=== PATIENT | female | born 1965 | race African-American/Black ===

== ENCOUNTER → 2019-02-25 | Outpatient (CLI) | payer OTHER ==
[2019-02-25 12:39] LABS: BARBITURATES NEG (NEG); BENZODIAZEPINES NEG (NEG); CANNABINOIDS NEG (NEG); COCAINE NEG (NEG); METHADONE NEG (NEG); OPIATES NEG (NEG); PHENCYCLIDINE NEG (NEG)
[2019-02-25 12:42] LABS: AMPHETAMINE/METHAMPHETAMINE NEG (NEG)
[2019-02-25 12:43] LABS: BASO % 1 % (0-3); EOS # 0.3 x10^3/uL (0.0-0.7); EOS % 4 % (0-3); HEMATOCRIT 41.4 % (36.0-47.0); HEMOGLOBIN 13.4 g/dL (12.0-15.5); LYMPH # 2.9 x10^3/uL (1.0-4.8); LYMPH % 42 % (24-48); MEAN CORPUSCULAR HEMOGLOBIN 26 pg (25-35); MEAN CORPUSCULAR HGB CONC 32 g/dL (31-37); MEAN CORPUSCULAR VOLUME 80 fL (79-100); MONO # 0.5 x10^3/uL (0.0-1.1); MONO % 7 % (0-9); NEUT # 3.2 x10^3/uL (1.8-7.7); NEUT % 46 % (31-73); PLATELET COUNT 316 x10^3/uL (140-400); RED BLOOD COUNT 5.17 x10^6/uL (3.50-5.40); RED CELL DISTRIBUTION WIDTH 15.1 % (11.5-14.5)
[2019-02-25 12:49] LABS: ALBUMIN 4.1 g/dL (3.4-5.0); ALBUMIN/GLOBULIN RATIO 1.1 (1.0-1.7); CALCIUM 10.7 mg/dL (8.5-10.1); CREATININE 0.8 mg/dL (0.6-1.0); GFR 74.5; POTASSIUM 3.7 mmol/L (3.5-5.1); TOTAL BILIRUBIN 0.2 mg/dL (0.2-1.0); TOTAL PROTEIN 7.8 g/dL (6.4-8.2)
== END | disposition home or self-care (01) ==
LOC: LAB 11:50
PROVIDERS: ATTEND Psychiatry & Neurology Neurology
DX: E11.40 Type 2 diabetes mellitus with diabetic neuropathy, unspecified (principal); E03.9 Hypothyroidism, unspecified; R56.9 Unspecified convulsions
CPT/HCPCS: 36415; 80053; 80307; 82607; 84443; 85025

== ENCOUNTER → 2019-03-11 | Outpatient (CLI) | payer OTHER ==
--- NOTE | 2019-03-15 19:48 | EEG ---
DATE OF SERVICE: 03/11/2019 EEG NUMBER: [id number]. OBJECTIVE: This is a 53-year-old female patient with history of seizure or seizure-like episodes. EEG was requested to evaluate seizure activity. METHODS: Twenty electrodes were applied according to the international 10-20 electrode placement system. EKG monitoring, hyperventilation, intermittent photic stimulation, monopolar and bipolar montages are routinely utilized. The record was obtained on a digital system with video monitoring. FINDINGS: 1. Background: The patient was recorded in the awake, drowsy, and sleep states. The overall background amplitude is 5-15 microvolts. A posterior dominant rhythm of 8-9 Hz is observed. 2. Abnormalities: No specific epileptiform discharge or electrographic seizure is seen. No diffuse slowing. 3. Activation: Hyperventilation was performed with good efforts and normal response. Intermittent photic stimulation was performed with photic driving. No specific epileptiform discharge or electrographic seizure induced by hyperventilation or intermittent photic stimulation. IMPRESSION: This EEG is a borderline study for the awake, drowsy, and sleep states. No focal, lateralizing, or specific epileptiform discharge or electrographic seizure is seen. RADAMES COLE MD DR: TED/jerad JOB#: [id number] / [id number] EMILY
== END | disposition home or self-care (01) ==
LOC: RT 08:46
PROVIDERS: ATTEND Psychiatry & Neurology Neurology
DX: R56.9 Unspecified convulsions (principal)
CPT/HCPCS: 95816

== ENCOUNTER → 2019-05-03 | Outpatient (CLI) | payer OTHER ==
--- NOTE | 2019-05-18 19:52 | EEG ---
DATE OF SERVICE: 05/03/2019 EEG#: [id number]. OBJECTIVE: This is a 53-year-old -[place] female patient with history of seizure or seizure-like episodes. EEG was requested to evaluate seizure activity. This is a long-term video EEG monitoring. METHODS: Twenty electrodes were applied according to the international 10-20 electrode placement system. EKG monitoring, hyperventilation, intermittent photic stimulation, monopolar and bipolar montages are routinely utilized. The record was obtained on a digital system with video monitoring. FINDINGS: 1. Background: The patient was recorded in the awake, drowsy, and sleep states. The overall background amplitude is 10-20 microvolts. A posterior dominant rhythm of 8 Hz is observed. 2. Abnormalities: No specific epileptiform discharge or electrographic seizure is seen. No focal or diffuse slowing. 3. Activation: Hyperventilation was performed with good efforts and normal response. Intermittent photic stimulation was performed with photic driving. IMPRESSION: This is a long-term video EEG study with the total video monitoring and EEG recording time of 24 hours from 05/03/2019 to 05/04/2019. This long-term video EEG study is within the normal limits of the study for the awake, drowsy, and sleep states. No focal, lateralizing, specific epileptiform discharge or electrographic seizure is seen. The patient had a seizure-like episode at 12:21 pm as sudden jerking movements in her arms and legs. Her both arms extended with flapping up and down movements against the bed, and her both lower extremities were in extension position with similar movements with body up-down movements lasting for about 1.5 minutes. No changes of vitals. This episode may suggest non- epileptic seizure. RADAMES COLE MD DR: TED/jerad JOB#: [id number] / [id number] EMILY
== END | disposition home or self-care (01) ==
LOC: SLPLAB 06:17
PROVIDERS: ATTEND Psychiatry & Neurology Neurology
DX: R56.9 Unspecified convulsions (principal)
CPT/HCPCS: 95716; 95951

== ENCOUNTER → 2019-10-27 | Outpatient (CLI) | payer OTHER ==
--- NOTE | 2019-11-01 16:19 | SLEEP ---
DATE OF STUDY: 10/27/2019 OBJECTIVE: The patient is a 54-year-old female with excessive somnolence. Height 64 inches, weight 205 pounds, body mass index 35.2. [place] sleep score 21. The respiratory monitoring shows a total of 139 events for a respiratory disturbance index of 15.6 events per hour of sleep. Also noted were respiratory event related arousals and flow limitations. The minimum oxygen saturation is 77%. There was an episode of tachycardia 255 beats per minute, thought to be artifactual. IMPRESSION: Abnormal home polysomnogram demonstrating moderate-severe apnea and hypopnea. RECOMMENDATIONS: The patient should return to the lab for a CPAP titration study. Thank you for letting us help with the patient's care. MAYI ELI MD DR: SID/jerad JOB#: [id number] / [id number] VERONIKA Hazel GALEN MD
== END | disposition home or self-care (01) ==
LOC: RT 08:17
PROVIDERS: ATTEND Nurse Practitioner Family
DX: G47.33 Obstructive sleep apnea (adult) (pediatric) (principal); R40.0 Somnolence
CPT/HCPCS: G0399

== ENCOUNTER → 2020-04-11 | Outpatient (CLI) | payer OTHER ==
[2020-02-16 11:00] VITALS: BP 111/55
[~2020-04-11] MED LIST: PANT40TA77 PO
--- NOTE | 2020-04-11 11:10 | CARD ---
MR#: [id number] Date of Study: 04/11/2020 Ordering Physician: KELLEY AMBROSE, Referring Physician: KELLEY AMBROSE, Tech: Kenya Bernievenu, [facility] APPROVED REPORT EXAM: Two-dimensional and M-mode echocardiogram with Doppler and color Doppler. Other Information Quality : AverageHR: 77bpm Technically limited study due to Asthma INDICATION Dyspnea RISK FACTORS Hypertension Hyperlipidemia Diabetes 2D DIMENSIONS RVDd2.8 (2.9-3.5cm)Left Atrium(2D)3.5 (1.6-4.0cm) IVSd1.2 (0.7-1.1cm)Aortic Root(2D)3.0 (2.0-3.7cm) LVDd4.8 (3.9-5.9cm)LVOT Diameter2.1 (1.8-2.4cm) PWd1.3 (0.7-1.1cm)LVDs2.9 (2.5-4.0cm) FS (%) 38.9 %SV73.9 ml LVEF(%)64.3 (>50%) Aortic Valve AoV Peak Ronald.138.4cm/sAoV VTI26.5cm AO Peak GR.7.7mmHgLVOT Peak Ronald.118.3cm/s LVOT VTI 21.32cmAO Mean GR.5mmHg JAIME (VMAX)2.05ym8ZEG (VTI)2.84cm2 Mitral Valve MV E Mtovtywq63.3cm/sMV DECEL [id number] MV A Kwcsfxzb81.6cm/sMV XAK39fv E/A Ratio0.7MVA (PHT)2.33cm2 TDI E/Lateral E'6.4E/Medial E'6.1 Pulmonary Valve PV Peak Uvtfabzl891.4cm/sPV Peak Grad.5mmHg Pulmonary Vein S1 Vpqsidox22.7cm/sD2 Cwgdpufv18.9cm/s PVa [id number] LEFT VENTRICLE The left ventricle is normal size. There is mild to moderate concentric left ventricular hypertrophy. The left ventricular systolic function is normal and the ejection fraction is within normal range. T he Ejection Fraction is 55-60%. There is normal LV segmental wall motion. Transmitral Doppler flow pa ttern is Grade I-abnormal relaxation pattern. RIGHT VENTRICLE The right ventricle is normal size. There is normal right ventricular wall thickness. The right ventr icular systolic function is normal. ATRIA The left atrium size is normal. The right atrium size is normal. The interatrial septum is intact wit h no evidence for an atrial septal defect or patent foramen ovale as noted on 2-D or Doppler imaging. AORTIC VALVE The aortic valve is normal in structure and function. Doppler and Color Flow revealed no significant aortic regurgitation. There is no significant aortic valvular stenosis. Calculated aortic valve area is 2.46 cm2 with maximum pressure gradient of 9 mmHg and mean pressure gradient of 6 mmHg. MITRAL VALVE The mitral valve is normal in structure and function. There is no evidence of mitral valve prolapse. There is no mitral valve stenosis. Doppler and Color-flow revealed trace mitral regurgitation. TRICUSPID VALVE The tricuspid valve is normal in structure and function. Doppler and Color Flow revealed no tricuspid valve regurgitation noted. There is no tricuspid valve stenosis. PULMONIC VALVE The pulmonic valve is not well visualized. Doppler and Color Flow revealed trace pulmonic valvular re gurgitation. There is no pulmonic valvular stenosis. GREAT VESSELS The aortic root is normal in size. The ascending aorta is normal in size. The IVC was not visualized. PERICARDIAL EFFUSION There is no evidence of significant pericardial effusion. Critical Notification Critical Value: No <Conclusion> The left ventricular systolic function is normal and the ejection fraction is within normal range. Th e Ejection Fraction is 55-60%. There is normal LV segmental wall motion. Signed by : Christopher Roberts, Electronically Approved : 04/11/2020 11:09:56
== END ==
LOC: ECHO 07:38
PROVIDERS: ATTEND Internal Medicine Critical Care Medicine
DX: I51.7 Cardiomegaly (principal)
CPT/HCPCS: 93306

== ENCOUNTER → 2020-04-14 | Outpatient (CLI) | payer OTHER ==
[2020-02-16 11:00] VITALS: BP 111/55
--- NOTE | 2020-04-14 17:13 | RAD ---
CT scan of the chest without contrast 04/14/2020 CLINICAL HISTORY: History of persistent interstitial infiltrates. TECHNIQUE: Unenhanced, contiguous, 5 mm axial sections were obtained through the chest and upper abdo men. One or more of the following individualized dose reduction techniques were utilized for this study: 1. Automated exposure control. 2. Adjustment of the mA and/or kV according to patient size. 3. Use of iterative reconstruction technique. FINDINGS: Comparison is made to a portable chest radiograph dated 02/12/2020. The heart is normal in size. The thoracic aorta is mildly tortuous. Small likely reactive mediastinal and axillary lymph nodes are seen which measure 5 mm to 1.5 cm in size. Minimal dependent subsegmental atelectasis is seen involving both lungs. No area of consolidation is seen. No pneumothorax or pleural effusion is seen. No significant pulmonary nodule is noted. No bronc hiectasis or area of honeycombing is seen. The infiltrates seen involving previous chest radiograph have resolved. Images through the upper abdomen demonstrate decreased attenuation of the liver parenchyma consistent with fatty infiltration. A 2 cm rounded low-attenuation lesion is seen involving the left kidney whi ch likely represents a cyst. No further imaging evaluation is recommended. A 1 to 2 mm nonobstructing calculus is seen involving the superior pole of the left kidney. Atherosclerotic calcification of th e abdominal aorta is seen. Degenerative changes are seen involving the thoracic spine. IMPRESSION: No acute abnormality is seen. Electronically signed by: Roger Deleon MD (04/14/2020 5:10 PM) [id number]
== END ==
LOC: CT 10:07
PROVIDERS: ATTEND Internal Medicine Critical Care Medicine
DX: J84.9 Interstitial pulmonary disease, unspecified (principal)
CPT/HCPCS: 71250

== ENCOUNTER → 2020-05-01 | Outpatient (CLI) | payer OTHER ==
[2020-02-16 11:00] VITALS: BP 111/55
[~2020-05-01] VITALS: Ht 162.6 cm; Wt 95.3 kg
--- NOTE | 2020-05-01 13:30 | RAD ---
EXAM: Pulmonary ventilation-perfusion scan. HISTORY: Dyspnea. TECHNIQUE: Scintigraphic ventilation images of the chest were obtained during the inhalation of 10 mC i Xe-133 gas. Scintigraphic perfusion images of the chest were obtained following the administration of 5 mCi Tc-99m MAA. COMPARISON: Chest radiograph obtained on the same date. FINDINGS: The ventilation images demonstrates symmetric accumulation of radiotracer within both lungs . There is no significant tracer retention. The perfusion images demonstrate no evidence of a perfusi on defect or ventilation-perfusion mismatch to suggest pulmonary embolism. IMPRESSION: Negative for pulmonary embolism. Electronically signed by: Shavonne Dash MD (05/01/2020 1:27 PM) [id number]
--- NOTE | 2020-05-01 16:40 | RAD ---
EXAM: PA and Lateral Views of the Chest DATE: 05/01/2020 10:44 AM INDICATION: Reason: DYSPNEA / Spl. Instructions: / History: COMPARISON: No Prior FINDINGS: The heart is not enlarged. Mediastinal and hilar contours are normal. Patchy opacities are seen in the infrahilar right lung. No pleural effusion or pneumothorax. IMPRESSION: Patchy opacities are seen in the infrahilar right lung, possibly atelectasis or consolidation. Imagin g follow-up to resolution is recommended. Electronically signed by: Art Olson MD (05/01/2020 4:37 PM) FLORINDA
== END ==
LOC: NM 11:06
PROVIDERS: ATTEND Internal Medicine Critical Care Medicine
DX: R06.00 Dyspnea, unspecified (principal)
CPT/HCPCS: 71046; 78582; A9540; A9558; 96374